=== PATIENT | male | born 1990 | race Caucasian/White ===

== ENCOUNTER 2020-09-27 16:45 | Emergency (ER) | payer OTHER ==
[~2020-09-27] VITALS: Ht 177.8 cm; Wt 107.4 kg
[2020-09-27 21:04] LABS: HEMATOCRIT 43.5 % (42.0-52.0); HEMOGLOBIN 14.9 g/dl (13.5-17.5); MEAN CORPUSCULAR HEMOGLOBIN 30.4 pg (27.0-33.0); MEAN CORPUSCULAR HGB CONC 34.3 g/dl (32.0-36.5); MEAN CORPUSCULAR VOLUME 88.8 fl (80.0-96.0); PLATELET COUNT, AUTOMATED 162 10^3/uL (150-450); WHITE BLOOD COUNT 8.3 10^3/uL (4.0-10.0)
[2020-09-27 21:27] LABS: BLOOD UREA NITROGEN 9 MG/DL (7-18); C REACTIVE PROTEIN QUANTITATIV 1.76 MG/DL (0.00-0.30); CALCIUM LEVEL 8.3 MG/DL (8.5-10.1); CARBON DIOXIDE LEVEL 28 MEQ/L (21-32); CHLORIDE LEVEL 103 MEQ/L (98-107); CREATININE FOR GFR 1.07 MG/DL (0.70-1.30); GLOMERULAR FILTRATION RATE > 60.0 (>60); GLUCOSE, FASTING 105 MG/DL (70-100); POTASSIUM SERUM 4.5 MEQ/L (3.5-5.1); SODIUM LEVEL 136 MEQ/L (136-145)
[2020-09-27 21:33] LABS: MONO REFLEX EBV COMP NEGATIVE (NEGATIVE)
[2020-09-27 21:44] LABS: ERYTHROCYTE SEDIMENTATION RATE 20 mm/hr (0-15)
[2020-09-27 22:13] LABS: ATYPICAL LYMPH 41 % (0-5); EOSINOPHILS 3 % (0-3); LYMPHOCYTES 12 % (16-44); MONOCYTES 5 % (0-5); NEUTROPHILS 36 % (28-66)
[2020-09-27 22:14] LABS: PLATELET ESTIMATE NORMAL (NORMAL)
[2020-09-27] MEDS ORDERED: ISOVUE-370 76% 100ML VIAL As Ordered ONE (22:55)
[2020-09-28 02:00] VITALS: BP 121/65
[2020-09-29 13:11] LABS: EBV VIRAL CAPSID AG IgG >600.0 U/mL (0.0-17.9); EBV VIRAL CAPSID AG IgM >160.0 U/mL (0.0-35.9)
[2020-09-29 21:07] LABS: Lyme Disease IgG Ab 18 kDa Ban Absent (.); Lyme Disease IgG Ab 23 kDa Ban Absent (.); Lyme Disease IgG Ab 28 kDa Ban Absent (.); Lyme Disease IgG Ab 30 kDa Ban Absent (.); Lyme Disease IgG Ab 39 kDa Ban Absent (.); Lyme Disease IgG Ab 41 kDa Ban Absent (.); Lyme Disease IgG Ab 45 kDa Ban Absent (.); Lyme Disease IgG Ab 58 kDa Ban Absent (.); Lyme Disease IgG Ab 66 kDa Ban Absent (.); Lyme Disease IgG Ab 93 kDa Ban Absent (.); Lyme Disease IgG West Blot Int Negative (.); Lyme Disease IgG/IgM Antibodie <0.91 ISR (0.00-0.90); Lyme Disease IgM Ab 23 kDa Ban Absent (.); Lyme Disease IgM Ab 39 kDa Ban Absent (.); Lyme Disease IgM Ab 41 kDa Ban Absent (.); Lyme Disease IgM Ab Quantitati 0.88 index (0.00-0.79); Lyme Disease IgM West Blot Int Negative (.)
== END 2020-09-28 02:03 | disposition home or self-care (01) ==
LOC: M ED 16:45
DX: R50.9 Fever, unspecified (principal); R05 Cough; R51.9 Headache, unspecified; M79.661 Pain in right lower leg
CPT/HCPCS: 36415; 71275; 80048; 85025; 85379; 85652; 86140; 86308; 86617; 86664; 86665; 87798; 87880; 93005; 93971; 99284; Q9967

== ENCOUNTER 2020-10-17 22:56 | Emergency (ER) | payer OTHER ==
[~2020-10-17] VITALS: Ht 177.8 cm; Wt 107.0 kg
[2020-10-17 22:56] VITALS: BP 142/73
== END 2020-10-18 03:10 | disposition left against medical advice (07) ==
LOC: M ED 22:56
DX: Z53.21 Procedure and treatment not carried out due to patient leaving prior to being seen by health care provider (principal)